=== PATIENT | male | born 1945 | race Caucasian/White ===

== ENCOUNTER 2020-09-04 13:54 | Outpatient (REF) | payer MEDICARE, SELFPAY | END 2020-09-04 13:55 | disposition home or self-care (01) | LOC: HO.BBR 13:54 | PROVIDERS: Visit Provider Internal Medicine Medical Oncology | DX: D75.1 Secondary polycythemia (principal) | CPT/HCPCS: 36415; 85018; 99195 ==

== ENCOUNTER 2020-10-01 12:53 | Outpatient (REF) | payer MEDICARE, SELFPAY | END 2020-10-01 12:54 | disposition home or self-care (01) | LOC: HO.BBR 12:53 | PROVIDERS: Visit Provider Internal Medicine Medical Oncology | DX: D45 Polycythemia vera (principal) | CPT/HCPCS: 36415; 85018 ==

== ENCOUNTER 2020-10-16 13:01 | Outpatient (REF) | payer MEDICARE, SELFPAY | END 2020-10-16 13:02 | disposition home or self-care (01) | LOC: HO.BBR 13:01 | PROVIDERS: Visit Provider Internal Medicine Medical Oncology | DX: Z13.89 Encounter for screening for other disorder (principal) | CPT/HCPCS: 85014; 85018; 99195 ==

== ENCOUNTER 2020-10-30 13:47 | Outpatient (REF) | payer MEDICARE, SELFPAY | END 2020-10-30 13:48 | disposition home or self-care (01) | LOC: HO.BBR 13:47 | PROVIDERS: Visit Provider Internal Medicine Medical Oncology | DX: D45 Polycythemia vera (principal) | CPT/HCPCS: 85018; 99195 ==

== ENCOUNTER 2021-01-08 14:19 | Outpatient (REF) | payer MEDICARE, SELFPAY | END 2021-01-08 14:20 | disposition home or self-care (01) | LOC: HO.BBR 14:19 | PROVIDERS: Visit Provider Internal Medicine Medical Oncology | DX: D45 Polycythemia vera (principal) | CPT/HCPCS: 85018 ==